=== PATIENT | male | born 2000 | race Caucasian/White ===

== ENCOUNTER 2021-06-15 13:02 | Outpatient (CLI) | payer OTHER ==
--- NOTE | 2021-06-15 15:23 | XRAY Report ---
PROCEDURE: Ankle 3 View LT INDICATIONS: LEFT ANKLE FX TECHNIQUE: 3 views of the ankle were acquired. COMPARISON: None FINDINGS: Bones: No fractures or dislocations. Ankle mortise is normally aligned. No suspicious bony lesions . The talar dome demonstrates an unremarkable appearance. Soft tissues: Soft tissue swelling is seen, particularly laterally. IMPRESSION: Soft tissue swelling is seen, particularly laterally. No findings of fracture are seen. However, if there is point tenderness (or other clinical concern fo r a fracture not seen on these plain films) then please consider a short-term follow-up plain film se maggy or CT for further evaluation. Reviewed by: Nick Henry MD on 06/15/2021 2:22 PM ANGELA Approved by: Nick Henry MD on 06/15/2021 2:22 PM ANGELA Station ID: [id number]
== END 2021-06-15 23:59 | disposition home or self-care (01) ==
LOC: DI.N 13:02
PROVIDERS: ATTEND Physician Assistant Medical
DX: R22.42 Localized swelling, mass and lump, left lower limb (principal)

== ENCOUNTER 2023-10-23 13:15 | Outpatient (CLI) | payer OTHER ==
--- NOTE | 2023-10-24 12:12 | XRAY Report ---
PROCEDURE: Shoulder 2+V RT INDICATIONS: STRAIN OF UNSPECIFIED MUSCLE TECHNIQUE: 2 views of the shoulder were acquired. COMPARISON: None. FINDINGS: Bones: No fractures or dislocations. Normal glenohumeral alignment. Acromioclavicular and coracocla vicular intervals are maintained. No suspicious bony lesions. Visualized ribs appear intact. Soft tissues: No suspicious soft tissue calcifications. The visualized lungs are within normal limi ts. IMPRESSION: No acute bony abnormality. Reviewed by: Leon Stoll MD on 10/24/2023 12:11 PM PST Approved by: Leon Stoll MD on 10/24/2023 12:11 PM PST Station ID: [id number]
== END 2023-10-23 13:16 | disposition home or self-care (01) ==
LOC: DI 13:15
PROVIDERS: ATTEND Nurse Practitioner
DX: S46.911A Strain of unspecified muscle, fascia and tendon at shoulder and upper arm level, right arm, initial encounter (principal)

== ENCOUNTER 2024-06-16 13:44 | Outpatient (CLI) | payer OTHER ==
[~2024-06-16 13:44] MED LIST: GADOTERATE MEGLUMINE 5 MMOL/10 ML VIAL ONE; LIDOCAINE-MPF 1% 5 ML VIAL ONE; iohexoL-240 10 ML VIAL IVP ONE
[2024-06-16] MEDS: GADOTERATE MEGLUMINE 5 MMOL/10 ML VIAL IVP ONE (14:30)
[2024-06-16] MEDS: LIDOCAINE-MPF 1% 5 ML VIAL SUBQ STA (14:30)
[2024-06-16] MEDS: iohexoL-240 10 ML VIAL IVP ONE (14:30)
--- NOTE | 2024-06-17 07:12 | XRAY Report ---
PROCEDURE: Arthrogram Needle Placement INDICATIONS: RIGHT SHOULDER PAIN CONTRAST: 0.2 cc gadolinium-based contrast. 10 cc iodinated contrast. FLUOROSCOPY TIME: 0.2 min TECHNIQUE: The indications, alternatives, benefits, risks, and complications of the procedure were explained to the patient. Written informed consent was obtained and placed in the chart. The shoulder was examin ed fluoroscopically and a site for needle placement chosen for entry into the glenohumeral joint from an anterior approach. The skin was prepped and draped in the usual fashion, and 1% lidocaine infilt rated from skin down to joint capsule. A spinal needle was inserted into the glenohumeral joint, and a small amount of iodinated contrast media injected to confirm intra-articular placement of the need le tip. This was followed by approximately 12 mL dilute solution of a gadolinium containing MR contr ast agent. The needle was removed and a dressing was applied. The patient was given postprocedural instructions and sent to the MR suite for MR imaging. FINDINGS: A single fluoroscopic spot image demonstrates intra-articular location of injected iodinated contrast . IMPRESSION: Successful fluoroscopically guided administration of dilute Gadolinium solution into the shoulder kenya shay for MR arthrogram. Reviewed by: Cong Nuñez MD on 06/17/2024 7:11 AM PDT Approved by: Cong Nuñez MD on 06/17/2024 7:11 AM PDT Station ID: [id number]
--- NOTE | 2024-06-19 10:00 | MRI Report ---
PROCEDURE: Arthrogram Shoulder RT INDICATIONS: RIGHT SHOULDER PAIN CONTRAST: Examinations performed after intra-articular injection of gadolinium. TECHNIQUE: After the administration of 12 mL of dilute intra-articular Gadolinium contrast, oblique coronal T1 a nd T2 spin echo with fat saturation, oblique sagittal T1 spin echo with and without fat saturation, o blique sagittal T2 fast spin echo with fat saturation, axial T1 spin echo with fat saturation through the shoulder. COMPARISON: None. FINDINGS: Image quality: Excellent. There is a tear involving the posterior glenoid labrum extending into the superior glenoid labrum. Rotator cuff tendons are intact. Bicipital tendon is in its normal position in the bicipital groove. There is some mild AC joint degenerative change present. No significant glenohumeral joint degenerati ve change is seen. Musculature appears within normal limits. IMPRESSION: Tear involving the posterior superior glenoid labrum extending into the superior glenoid labrum. Reviewed by: Aime Okeefe MD on 06/19/2024 9:59 AM PDT Approved by: Aime Okeefe MD on 06/19/2024 9:59 AM PDT Station ID: [id number]
== END 2024-06-16 13:45 | disposition home or self-care (01) ==
LOC: DI 13:44
PROVIDERS: ATTEND Nurse Practitioner Family
DX: S43.431A Superior glenoid labrum lesion of right shoulder, initial encounter (principal)
CPT/HCPCS: 23350; 73222; 77002; A9575; Q9966